=== PATIENT | male | born 1980 | race Caucasian/White ===

== ENCOUNTER 2022-06-03 15:39 | Inpatient (IN) ==
[2022-06-03 16:57] LABS: Basophils # 0.1 10*3/uL (0.0-0.2); Basophils % 0.6 % (0.0-0.8); Eosinophils # 0.1 10*3/uL (0.0-0.87); Eosinophils % 0.6 % (0.00-10.9); Hematocrit 41.9 VOL% (42.0-52.0); Hemoglobin 13.3 GM/DL (14.0-18.0); Immature Granulocytes % 0.5 %; Immature Granulocytes Absolute 0.06 #; Lymphocytes # 1.6 10*3/uL (1.4-4.0); Lymphocytes % 12.4 % (21.2-54.2); Mean Corpuscular HGB Conc 31.7 GM/DL (32-36); Mean Corpuscular Volume 96.1 FL (87-102); Mean Platelet Volume 10.4 FL (9.6-12.0); Monocytes # 1.6 10*3/uL (0.11-0.8); Monocytes % 12.8 % (1.7-12.7); Neutrophils % 73.1 % (38.7-73.9); Platelet Count 215 T/CUMM (130-400); Red Blood Count 4.36 MC/CUMM (3.8-5.5); Red Cell Distribution Width 14.9 % (9.3-17.3)
[2022-06-03 17:10] LABS: INR 1.2; PT Patient Result 12.7 SECS (10.1-12.1); Partial Thromboplastin Time 32.6 SECS (23.7-32.9)
[2022-06-03 17:19] LABS: Albumin 2.6 G/DL (3.4-5.0); Bilirubin,Total 0.9 MG/DL (0.20-1.00); Calcium 8.5 MG/DL (8.5-10.1); Osmolality,Calculated 274.7 MOS/KG (273-304); Potassium 3.8 MMOL/L (3.5-5.1); Total Protein 6.3 G/DL (6.4-8.2)
[2022-06-03] MEDS ORDERED: VANCOMYCIN INJ 1,000 MG in SODIUM CHLORIDE 0.9% 250 ML IV STA (19:44)
[2022-06-03] MEDS ORDERED: PIPERACILLIN/TAZOBACTAM 3,375 MG in SODIUM CHLORIDE 0.9% 100 ML IV STA (19:44)
[2022-06-03] MEDS: HEPARIN DRIP 25,000 UNITS/500 ML PREMIX IV SCH (21:02)
[2022-06-03] MEDS ORDERED: LEVALBUTEROL 1.25 MG/3 ML NEB RESP TX STA (21:08)
[2022-06-03] MEDS ORDERED: DOCUSATE SODIUM 100 MG CAPSULE PO PRN (21:09)
[2022-06-03] MEDS ORDERED: ONDANSETRON 4 MG/2 ML VIAL IV PRN (21:09)
[2022-06-03] MEDS: LACTATED RINGERS 1,000 ML IV SCH (23:20)
[2022-06-04] MEDS: MORPHINE 2 MG/1 ML SYRINGE IV PRN ×4 (00:46→22:05)
[2022-06-04 03:00] LABS: Basophils # 0.1 10*3/uL (0.0-0.2); Basophils % 0.5 % (0.0-0.8); Eosinophils # 0.2 10*3/uL (0.0-0.87); Eosinophils % 1.4 % (0.00-10.9); Hematocrit 36.7 VOL% (42.0-52.0); Immature Granulocytes % 0.3 %; Immature Granulocytes Absolute 0.03 #; Lymphocytes # 1.5 10*3/uL (1.4-4.0); Lymphocytes % 13.7 % (21.2-54.2); Mean Corpuscular HGB Conc 32.7 GM/DL (32-36); Mean Corpuscular Volume 94.3 FL (87-102); Mean Platelet Volume 10.4 FL (9.6-12.0); Monocytes # 1.4 10*3/uL (0.11-0.8); Monocytes % 12.9 % (1.7-12.7); Neutrophils % 71.2 % (38.7-73.9); Platelet Count 205 T/CUMM (130-400); Red Blood Count 3.89 MC/CUMM (3.8-5.5); Red Cell Distribution Width 14.9 % (9.3-17.3)
[2022-06-04 03:12] LABS: INR 1.1; PT Patient Result 12.2 SECS (10.1-12.1); Partial Thromboplastin Time 49.6 SECS (23.7-32.9)
[2022-06-04 03:22] LABS: Albumin 2.3 G/DL (3.4-5.0); Bilirubin,Total 0.7 MG/DL (0.20-1.00); Calcium 7.8 MG/DL (8.5-10.1); Osmolality,Calculated 279.5 MOS/KG (273-304); Potassium 3.8 MMOL/L (3.5-5.1); Risk Ratio 5.32; Total Protein 5.7 G/DL (6.4-8.2); VLDL Cholesterol 11.8 MG/DL
[2022-06-04] MEDS ORDERED: hydrALAZINE 20 MG/1 ML VIAL IV PRN (03:37)
[2022-06-04 03:43] LABS: Barbiturates Screen,Urine Negative (Negative); Benzodiazepines Screen,Urine Negative (Negative); Cannabinoid Screen,Urine Positive (Negative); Opiate Screen,Urine Positive (Negative); Phencyclidine Screen,Urine Negative (Negative)
[2022-06-04] MEDS: PIPERACILLIN/TAZOBACTAM 3,375 MG in SODIUM CHLORIDE 0.9% 100 ML IV SCH ×3 (03:55→20:08)
[2022-06-04 04:19] LABS: Hepatitis B Surface Ag Quant < 0.10 Index; Hepatitis B Surface Ag Result Non-Reactive (NonReactive); Hepatitis C Virus Ab Quant < 0.02 Index; Hepatitis C Virus Ab Result Non-Reactive (NonReactive)
[2022-06-04] MEDS ORDERED: VANCOMYCIN INJ 1,500 MG in SODIUM CHLORIDE 0.9% 250 ML IV SCH (08:00)
[2022-06-04] MEDS: VANCOMYCIN INJ 1,500 MG in SODIUM CHLORIDE 0.9% 500 ML IV SCH ×2 (08:00→20:09)
[2022-06-04 09:33] LABS: INR 1.1; PT Patient Result 12.4 SECS (10.1-12.1)
[2022-06-04 13:04] LABS: Mucus,Urine Occasional /LPF (Occasional); RBC,Urine 1 /HPF (0-4); Squamous Epithelial Cell,Urine Occasional /HPF (0-10)
[2022-06-04 13:09] LABS: Bilirubin,Urine Negative (Negative); Blood, Urine Negative (Negative); Glucose,Urine (UA) Negative (Negative); Ketones,Urine Negative (Negative); Nitrite,Urine Negative (Negative); Protein,Urine Trace mg/dL (Negative); Urine Appearance Clear (Clear); Urine Color Yellow (Yellow); Urine Specific Gravity 1.015 (1.001-1.035); Urine pH 5.5 (4.5-8.0)
[2022-06-04] MEDS: LACTATED RINGERS 1,000 ML IV SCH (15:03)
[2022-06-04 16:11] LABS: INR 1.1; PT Patient Result 12.3 SECS (10.1-12.1); Partial Thromboplastin Time 30.4 SECS (23.7-32.9)
[2022-06-04] MEDS ORDERED: WARFARIN 5 MG TABLET PO SCH (18:00)
[2022-06-04] MEDS: carvediloL 3.125 MG TABLET PO SCH (20:08)
[2022-06-04] MEDS: WARFARIN 5 MG TABLET PO SCH (20:08)
[2022-06-04 21:46] LABS: INR 1.2; PT Patient Result 12.6 SECS (10.1-12.1); Partial Thromboplastin Time 52.8 SECS (23.7-32.9)
[2022-06-04] MEDS: LORazepam 2 MG/1 ML VIAL IV PRN (22:05)
[2022-06-04] MEDS: LEVALBUTEROL 1.25 MG/3 ML NEB RESP TX PRN (23:44)
[2022-06-05] MEDS: HEPARIN DRIP 25,000 UNITS/500 ML PREMIX IV SCH ×3 (00:13→21:50)
[2022-06-05] MEDS: PIPERACILLIN/TAZOBACTAM 3,375 MG in SODIUM CHLORIDE 0.9% 100 ML IV SCH ×3 (03:59→20:48)
[2022-06-05 04:12] LABS: Basophils # 0.1 10*3/uL (0.0-0.2); Basophils % 0.7 % (0.0-0.8); Eosinophils # 0.2 10*3/uL (0.0-0.87); Eosinophils % 2.1 % (0.00-10.9); Hematocrit 36.1 VOL% (42.0-52.0); Hemoglobin 11.6 GM/DL (14.0-18.0); Immature Granulocytes % 0.6 %; Immature Granulocytes Absolute 0.06 #; Lymphocytes # 1.2 10*3/uL (1.4-4.0); Lymphocytes % 11.4 % (21.2-54.2); Mean Corpuscular HGB Conc 32.1 GM/DL (32-36); Mean Corpuscular Volume 94.5 FL (87-102); Mean Platelet Volume 10.5 FL (9.6-12.0); Monocytes # 1.3 10*3/uL (0.11-0.8); Monocytes % 12.4 % (1.7-12.7); Neutrophils % 72.8 % (38.7-73.9); Platelet Count 243 T/CUMM (130-400); Red Blood Count 3.82 MC/CUMM (3.8-5.5); Red Cell Distribution Width 15.1 % (9.3-17.3); White Blood Count 10.15 T/CUMM (4-12)
[2022-06-05 04:20] LABS: INR 1.1; PT Patient Result 12.1 SECS (10.1-12.1)
[2022-06-05 04:42] LABS: Albumin 2.2 G/DL (3.4-5.0); Bilirubin,Total 0.8 MG/DL (0.20-1.00); Calcium 7.7 MG/DL (8.5-10.1); Osmolality,Calculated 273.8 MOS/KG (273-304); Total Protein 5.7 G/DL (6.4-8.2)
[2022-06-05] MEDS: LORazepam 2 MG/1 ML VIAL IV PRN ×2 (05:36→23:27)
[2022-06-05] MEDS: LEVALBUTEROL 1.25 MG/3 ML NEB RESP TX PRN (06:18)
[2022-06-05] MEDS: VANCOMYCIN INJ 1,500 MG in SODIUM CHLORIDE 0.9% 500 ML IV SCH ×2 (09:00→21:52)
[2022-06-05] MEDS: LOSARTAN 25 MG TABLET PO SCH (09:30)
[2022-06-05] MEDS: carvediloL 3.125 MG TABLET PO SCH ×2 (09:30→21:15)
[2022-06-05 11:01] LABS: INR 1.1; PT Patient Result 11.7 SECS (10.1-12.1); Partial Thromboplastin Time 33.9 SECS (23.7-32.9)
[2022-06-05 13:23] LABS: Total Protein,Body Fluid 2.2 G/DL
[2022-06-05 13:28] LABS: Lymphocytes,Pleural Fluid 60 %; Monocytes,Pleural Fluid 5 %; Neutrophils,Pleural Fluid 35 %; RBC,Pleural Fluid 805 T/CUMM
[2022-06-05] MEDS ORDERED: SODIUM CHLORIDE 0.9% 1,000 ML IV SCH (16:00)
[2022-06-05 17:57] LABS: INR 1.1; PT Patient Result 11.8 SECS (10.1-12.1); Partial Thromboplastin Time 65.2 SECS (23.7-32.9)
[2022-06-05] MEDS: WARFARIN 5 MG TABLET PO SCH (20:47)
[2022-06-06 00:49] LABS: PT Patient Result 85.1 SECS (10.1-12.1)
[2022-06-06 00:53] LABS: Partial Thromboplastin Time 126.1 SECS (23.7-32.9)
[2022-06-06] MEDS: MORPHINE 2 MG/1 ML SYRINGE IV PRN (01:06)
[2022-06-06] MEDS: LORazepam 2 MG/1 ML VIAL IV PRN ×2 (03:26→23:48)
[2022-06-06] MEDS: PIPERACILLIN/TAZOBACTAM 3,375 MG in SODIUM CHLORIDE 0.9% 100 ML IV SCH (04:51)
[2022-06-06 04:52] LABS: Basophils # 0.1 10*3/uL (0.0-0.2); Basophils % 0.9 % (0.0-0.8); Eosinophils # 0.2 10*3/uL (0.0-0.87); Eosinophils % 2.4 % (0.00-10.9); Hematocrit 35.7 VOL% (42.0-52.0); Hemoglobin 11.2 GM/DL (14.0-18.0); Immature Granulocytes % 0.4 %; Immature Granulocytes Absolute 0.04 #; Lymphocytes # 1.3 10*3/uL (1.4-4.0); Lymphocytes % 13.6 % (21.2-54.2); Mean Corpuscular HGB Conc 31.4 GM/DL (32-36); Mean Platelet Volume 10.2 FL (9.6-12.0); Monocytes # 1.2 10*3/uL (0.11-0.8); Monocytes % 12.2 % (1.7-12.7); Neutrophils % 70.5 % (38.7-73.9); Platelet Count 274 T/CUMM (130-400); Red Blood Count 3.72 MC/CUMM (3.8-5.5); Red Cell Distribution Width 14.9 % (9.3-17.3); White Blood Count 9.41 T/CUMM (4-12)
[2022-06-06 05:03] LABS: INR 1.1; PT Patient Result 12.4 SECS (10.1-12.1); Partial Thromboplastin Time 47.6 SECS (23.7-32.9)
[2022-06-06 05:13] LABS: Albumin 2.1 G/DL (3.4-5.0); Bilirubin,Total 0.5 MG/DL (0.20-1.00); Calcium 7.6 MG/DL (8.5-10.1); Osmolality,Calculated 276.7 MOS/KG (273-304); Total Protein 5.7 G/DL (6.4-8.2)
[2022-06-06] MEDS: HEPARIN DRIP 25,000 UNITS/500 ML PREMIX IV SCH ×3 (06:58→23:33)
[2022-06-06] MEDS: LOSARTAN 25 MG TABLET PO SCH (08:34)
[2022-06-06] MEDS: VANCOMYCIN INJ 1,500 MG in SODIUM CHLORIDE 0.9% 500 ML IV SCH (08:34)
[2022-06-06] MEDS: PANTOPRAZOLE 40 MG TABLET PO SCH (08:35)
[2022-06-06] MEDS: carvediloL 3.125 MG TABLET PO SCH ×2 (08:35→23:32)
[2022-06-06] MEDS: NICOTINE 14 MG/24 HR PATCH TRANSDERM SCH (15:33)
[2022-06-06] MEDS: WARFARIN 7.5 MG TABLET PO SCH (23:32)
[2022-06-06] MEDS: AMOXICILLIN/CLAV 875 MG TABLET PO SCH (23:32)
[2022-06-07 04:20] LABS: Basophils # 0.1 10*3/uL (0.0-0.2); Eosinophils # 0.2 10*3/uL (0.0-0.87); Eosinophils % 2.5 % (0.00-10.9); Hematocrit 37.7 VOL% (42.0-52.0); Immature Granulocytes % 0.4 %; Immature Granulocytes Absolute 0.03 #; Lymphocytes # 1.4 10*3/uL (1.4-4.0); Lymphocytes % 16.7 % (21.2-54.2); Mean Corpuscular HGB Conc 31.8 GM/DL (32-36); Mean Corpuscular Volume 96.4 FL (87-102); Mean Platelet Volume 10.1 FL (9.6-12.0); Monocytes # 1.1 10*3/uL (0.11-0.8); Monocytes % 12.9 % (1.7-12.7); Neutrophils % 66.5 % (38.7-73.9); Platelet Count 290 T/CUMM (130-400); Red Blood Count 3.91 MC/CUMM (3.8-5.5); Red Cell Distribution Width 15.1 % (9.3-17.3); White Blood Count 8.27 T/CUMM (4-12)
[2022-06-07 04:33] LABS: INR 1.2; PT Patient Result 12.7 SECS (10.1-12.1)
[2022-06-07 04:47] LABS: Albumin 2.1 G/DL (3.4-5.0); Bilirubin,Total 0.5 MG/DL (0.20-1.00); Calcium 8.1 MG/DL (8.5-10.1); Osmolality,Calculated 274.7 MOS/KG (273-304); Potassium 4.4 MMOL/L (3.5-5.1); Total Protein 5.9 G/DL (6.4-8.2)
[2022-06-07] MEDS: HEPARIN DRIP 25,000 UNITS/500 ML PREMIX IV SCH ×3 (05:14→15:34)
[2022-06-07] MEDS: MULTIVITAMIN (CENTRUM) TABLET PO SCH (09:49)
[2022-06-07] MEDS: carvediloL 3.125 MG TABLET PO SCH ×2 (09:49→20:51)
[2022-06-07] MEDS: LOSARTAN 25 MG TABLET PO SCH (09:49)
[2022-06-07] MEDS: FOLIC ACID 1 MG TABLET PO SCH (09:49)
[2022-06-07] MEDS: PANTOPRAZOLE 40 MG TABLET PO SCH (09:49)
[2022-06-07] MEDS: AMOXICILLIN/CLAV 875 MG TABLET PO SCH ×2 (09:49→20:51)
[2022-06-07] MEDS: NICOTINE 14 MG/24 HR PATCH TRANSDERM SCH (09:50)
[2022-06-07] MEDS: THIAMINE 100 MG TABLET PO SCH (09:50)
[2022-06-07] MEDS ORDERED: WARFARIN 5 MG TABLET PO ONE (13:43)
[2022-06-07] MEDS: LORazepam 2 MG/1 ML VIAL IV PRN (16:22)
[2022-06-07] MEDS: WARFARIN 7.5 MG TABLET PO SCH (20:51)
[2022-06-08] MEDS: HEPARIN DRIP 25,000 UNITS/500 ML PREMIX IV SCH ×4 (00:23→21:07)
[2022-06-08] MEDS: ACETAMINOPHEN 325 MG TABLET PO PRN ×2 (01:15→12:27)
[2022-06-08] MEDS: LORazepam 2 MG/1 ML VIAL IV PRN (01:21)
[2022-06-08 01:31] LABS: Basophils # 0.1 10*3/uL (0.0-0.2); Basophils % 0.9 % (0.0-0.8); Eosinophils # 0.2 10*3/uL (0.0-0.87); Eosinophils % 2.2 % (0.00-10.9); Hematocrit 35.1 VOL% (42.0-52.0); Hemoglobin 11.2 GM/DL (14.0-18.0); Immature Granulocytes % 0.6 %; Immature Granulocytes Absolute 0.05 #; Lymphocytes # 1.3 10*3/uL (1.4-4.0); Lymphocytes % 15.7 % (21.2-54.2); Mean Corpuscular HGB Conc 31.9 GM/DL (32-36); Mean Corpuscular Volume 96.4 FL (87-102); Mean Platelet Volume 10.3 FL (9.6-12.0); Monocytes # 1.1 10*3/uL (0.11-0.8); Neutrophils % 67.6 % (38.7-73.9); Platelet Count 307 T/CUMM (130-400); Red Blood Count 3.64 MC/CUMM (3.8-5.5); White Blood Count 8.07 T/CUMM (4-12)
[2022-06-08 01:41] LABS: Calcium 8.2 MG/DL (8.5-10.1); Osmolality,Calculated 277.4 MOS/KG (273-304); Potassium 4.2 MMOL/L (3.5-5.1)
[2022-06-08 01:42] LABS: % Iron Saturation 12.3 % (18-50)
[2022-06-08 01:58] LABS: INR 1.8
[2022-06-08 02:02] LABS: Partial Thromboplastin Time > 211.8 SECS (23.7-32.9)
[2022-06-08 02:32] LABS: Folate 14.04 NG/ML (5.38-24.0)
[2022-06-08] MEDS: carvediloL 3.125 MG TABLET PO SCH ×2 (10:50→21:01)
[2022-06-08] MEDS: MULTIVITAMIN (CENTRUM) TABLET PO SCH (10:50)
[2022-06-08] MEDS: THIAMINE 100 MG TABLET PO SCH (10:50)
[2022-06-08] MEDS: LOSARTAN 25 MG TABLET PO SCH (10:51)
[2022-06-08] MEDS: FOLIC ACID 1 MG TABLET PO SCH (10:51)
[2022-06-08] MEDS: NICOTINE 14 MG/24 HR PATCH TRANSDERM SCH (10:51)
[2022-06-08] MEDS: AMOXICILLIN/CLAV 875 MG TABLET PO SCH ×2 (10:51→21:01)
[2022-06-08] MEDS: PANTOPRAZOLE 40 MG TABLET PO SCH (10:51)
[2022-06-08] MEDS: WARFARIN 7.5 MG TABLET PO SCH (21:01)
[2022-06-09] MEDS: LORazepam 2 MG/1 ML VIAL IV PRN ×2 (00:06→23:19)
[2022-06-09] MEDS: HEPARIN DRIP 25,000 UNITS/500 ML PREMIX IV SCH (05:30)
[2022-06-09] MEDS: LEVALBUTEROL 1.25 MG/3 ML NEB RESP TX PRN (05:45)
[2022-06-09 07:07] LABS: Basophils # 0.1 10*3/uL (0.0-0.2); Eosinophils # 0.2 10*3/uL (0.0-0.87); Eosinophils % 2.5 % (0.00-10.9); Hematocrit 37.4 VOL% (42.0-52.0); Hemoglobin 11.5 GM/DL (14.0-18.0); Immature Granulocytes % 0.5 %; Immature Granulocytes Absolute 0.04 #; Lymphocytes # 1.3 10*3/uL (1.4-4.0); Lymphocytes % 15.8 % (21.2-54.2); Mean Corpuscular HGB Conc 30.7 GM/DL (32-36); Mean Corpuscular Volume 97.7 FL (87-102); Mean Platelet Volume 10.3 FL (9.6-12.0); Monocytes # 0.8 10*3/uL (0.11-0.8); Monocytes % 10.2 % (1.7-12.7); Platelet Count 361 T/CUMM (130-400); Red Blood Count 3.83 MC/CUMM (3.8-5.5); Red Cell Distribution Width 14.9 % (9.3-17.3); White Blood Count 8.15 T/CUMM (4-12)
[2022-06-09 07:14] LABS: INR 3.1; PT Patient Result 31.5 SECS (10.1-12.1)
[2022-06-09 07:24] LABS: Calcium 8.5 MG/DL (8.5-10.1); Osmolality,Calculated 279.3 MOS/KG (273-304); Potassium 4.3 MMOL/L (3.5-5.1)
[2022-06-09] MEDS: FERROUS SULFATE 325 MG TABLET PO SCH (08:44)
[2022-06-09] MEDS: AMOXICILLIN/CLAV 875 MG TABLET PO SCH ×2 (08:44→20:18)
[2022-06-09] MEDS: MULTIVITAMIN (CENTRUM) TABLET PO SCH (08:44)
[2022-06-09] MEDS: CHOLECALCIFEROL 5,000 UNIT TABLET PO SCH (08:44)
[2022-06-09] MEDS: FOLIC ACID 1 MG TABLET PO SCH (08:44)
[2022-06-09] MEDS: PANTOPRAZOLE 40 MG TABLET PO SCH (08:45)
[2022-06-09] MEDS: NICOTINE 14 MG/24 HR PATCH TRANSDERM SCH (08:45)
[2022-06-09] MEDS: THIAMINE 100 MG TABLET PO SCH (08:45)
[2022-06-09] MEDS: carvediloL 3.125 MG TABLET PO SCH ×2 (08:45→20:18)
[2022-06-09] MEDS: LOSARTAN 25 MG TABLET PO SCH (08:45)
[2022-06-09] MEDS ORDERED: FUROSEMIDE 40 MG/4 ML VIAL IV ONE (10:42)
[2022-06-09] MEDS ORDERED: WARFARIN 5 MG TABLET PO SCH (20:00)
[2022-06-10 04:58] LABS: Basophils # 0.1 10*3/uL (0.0-0.2); Basophils % 0.8 % (0.0-0.8); Eosinophils # 0.2 10*3/uL (0.0-0.87); Eosinophils % 1.8 % (0.00-10.9); Hematocrit 38.5 VOL% (42.0-52.0); Hemoglobin 12.2 GM/DL (14.0-18.0); Immature Granulocytes % 0.3 %; Immature Granulocytes Absolute 0.03 #; Lymphocytes # 1.5 10*3/uL (1.4-4.0); Lymphocytes % 16.7 % (21.2-54.2); Mean Corpuscular HGB Conc 31.7 GM/DL (32-36); Mean Corpuscular Volume 96.7 FL (87-102); Mean Platelet Volume 10.4 FL (9.6-12.0); Monocytes # 1.1 10*3/uL (0.11-0.8); Monocytes % 11.9 % (1.7-12.7); Neutrophils % 68.5 % (38.7-73.9); Platelet Count 370 T/CUMM (130-400); Red Blood Count 3.98 MC/CUMM (3.8-5.5); Red Cell Distribution Width 14.6 % (9.3-17.3); White Blood Count 8.85 T/CUMM (4-12)
[2022-06-10 05:27] LABS: Alanine Aminotransferase 60 U/L (16-61); Albumin 2.3 G/DL (3.4-5.0); Alkaline Phosphatase 78 U/L (45-117); Aspartate Amino Transferase 25 U/L (0-37); Bilirubin,Total < 0.39 MG/DL (0.20-1.00); Blood Urea Nitrogen 13 MG/DL (7-18); Calcium 8.5 MG/DL (8.5-10.1); Carbon Dioxide 22 MMOL/L (21-32); Chloride 109 MMOL/L (98-107); Glucose 87 MG/DL (74-106); Osmolality,Calculated 277.4 MOS/KG (273-304); Potassium 4.1 MMOL/L (3.5-5.1); Sodium 140 MMOL/L (136-145); Total Protein 6.4 G/DL (6.4-8.2)
[2022-06-10 08:16] LABS: INR 3.1; PT Patient Result 31.9 SECS (10.1-12.1)
[2022-06-10] MEDS: PANTOPRAZOLE 40 MG TABLET PO SCH (09:36)
[2022-06-10] MEDS: carvediloL 3.125 MG TABLET PO SCH (09:36)
[2022-06-10] MEDS: MULTIVITAMIN (CENTRUM) TABLET PO SCH (09:36)
[2022-06-10] MEDS: FOLIC ACID 1 MG TABLET PO SCH (09:36)
[2022-06-10] MEDS: FERROUS SULFATE 325 MG TABLET PO SCH (09:37)
[2022-06-10] MEDS: THIAMINE 100 MG TABLET PO SCH (09:37)
[2022-06-10] MEDS: LOSARTAN 25 MG TABLET PO SCH (09:37)
[2022-06-10] MEDS: CHOLECALCIFEROL 5,000 UNIT TABLET PO SCH (09:37)
[2022-06-10] MEDS: NICOTINE 14 MG/24 HR PATCH TRANSDERM SCH (09:37)
[2022-06-10] MEDS: AMOXICILLIN/CLAV 875 MG TABLET PO SCH (09:41)
[2022-06-10 13:24] VITALS: BP 119/81
[2022-06-10] MEDS ORDERED: PIPERACILLIN/TAZOBACTAM 3,375 MG in SODIUM CHLORIDE 0.9% 100 ML IV SCH (14:00)
== END 2022-06-10 18:04 | disposition home or self-care (01) | DRG 299 ==
LOC: N.ED 15:39 → SUATTDRO 20:57 → N.ICU 20:57 → N.TELEN 06-06 16:09
PROVIDERS: ADMIT Family Medicine; ATTEND Family Medicine